=== PATIENT | female | born 1970 | race Caucasian/White ===

== ENCOUNTER 2017-11-17 19:11 | Emergency (ER) | payer OTHER ==
[~2017-11-17] VITALS: Ht 165.1 cm; Wt 90.7 kg
[~2017-11-17 19:11] MED LIST: ANASPAZ0.125 MG PO; AUGMENTIN 875875 M1 PO; CIPROFLOXACIN500 M1 PO; FLAGYL500 MG PO; HYDROCODON-ACE1 EAC7; IBUPROFEN 200200 M1 PO; IBUPROFEN 600600 M1 PO; INVANZ1 G1 IV; LEVOTHYROXINE0.05 MG PO; NAPROSYN500 MG PO; NORCO 5-325 TA1 EACH PO; RESTORIL15 MG PO; TUMS PO; ZOFRAN ODT4 MG PO
[2017-11-17] MEDS ORDERED: VENTOLIN HFA 1818 GM INH (20:36)
[2017-11-17] MEDS ORDERED: PREDNISONE 20 M20 MG PO (20:36)
[2017-11-17 20:59] VITALS: BP 144/90
== END 2017-11-17 21:00 | disposition home or self-care (01) ==
LOC: ER 19:11
DX: J40 Bronchitis, not specified as acute or chronic (principal); J04.0 Acute laryngitis; K21.9 Gastro-esophageal reflux disease without esophagitis; K57.92 Diverticulitis of intestine, part unspecified, without perforation or abscess without bleeding; Z98.890 Other specified postprocedural states